=== PATIENT | male | born 1945 | race Caucasian/White ===

== ENCOUNTER → 2018-01-27 | Outpatient (CLI) | payer OTHER ==
[~2018-01-27] MED LIST: ASPIR 8181 MG PO; ATORVASTATIN CA40 MG PO; CENTRUM SILVER1 EAC2 PO; DOXYCYCLINE 10100 M2 PO; FISH OIL 1,001000 M2 PO; LEVOTHYROXIN0.088 MG PO; NORVASC2.5 MG PO; PROPRANOLOL 1010 MG PO
[2018-01-27 09:46] LABS: CREATININE 1.1 mg/dL (0.7-1.3)
== END ==
LOC: CAT 06:21
PROVIDERS: Otolaryngology
DX: M47.892 Other spondylosis, cervical region (principal); R22.1 Localized swelling, mass and lump, neck; Z85.21 Personal history of malignant neoplasm of larynx

== ENCOUNTER → 2019-01-17 | Outpatient (CLI) | payer OTHER ==
--- NOTE | 2019-01-18 13:14 | PATH ---
[facility] [address] [place] [address] PATHOLOGY RPT PROCEDURE Name: DANNY EATON Room #: REG [facility] Betty.#: [id number] ������������������ Admission: 01/17/19 ������������������ Date of : 47 Discharge: Report #: [id number] Path Case #: [id number] [facility] Accession Number: [id number] . 01 Material submitted: . RIGHT NECK BX, RECENT SCC REMOVED IN AREA OF BX . 01 Clinical history: . 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 (IUV:tello; 01/18/2019) QMS/01/18/2019 . 02 Comment: Examination shows fragments of atypical squamous epithelium with few hyperchromatic nuclei, giant cells, areas of hypergranulosis in addition to a focal cyst. Additionally, reactive skeletal muscle fragments are present. Overall, the differential diagnosis includes a partially sampled neoplasm (provided history of squamous cell carcinoma noted) along with a verrucoid lesion, as well as cysts in addition to reparative changes. Correlate clinically and follow-up as indicated. An excision is suggested if clinically indicated. . Dr. Becca Jones and Dr. Natividad Musa have seen customer support representative slides of this case and concur with my diagnosis. (IUV:tello; 01/18/2019) . 02 Electronically signed: . Bonny Livingston MD, Pathologist NPI- [id number] . 01 Gross description: . The specimen is received in formalin, labeled "James, Thomas, right neck, BX", is a lopez-white needle core and its fragments measuring 0.7 x 0.3 x 0.1 cm in aggregate. The specimen is entirely submitted in A1-A2. (SWS; 01/17/2019) SHS/SHS . 02 Pathologist provided ICD-10: L98.8 . 02 CPT . [id number] [address] [address] PATHOLOGY RPT PROCEDURE Name: DANNY EATON Room #: REG Deborah Gil#: [id number] ������������������ Admission: 01/17/19 ������������������ Date of : 47 Discharge: Report #: [id number] Path Case #: [id number] Specimen Comment: A courtesy copy of this report has been sent to Specimen Comment: [phone], , . Specimen Comment: Report sent to ,DR BARON / DR ÁLVAREZ Specimen Comment: A duplicate report has been generated due to demographic updates. Performed at: [address], [place] [id number] MD Bryon Wells MD Phone: [phone] Performed at: [address] [id number] MD Bonny Livingston MD Phone: [phone]
== END | disposition home or self-care (01) ==
LOC: ULTRA 09:12
DX: L92.8 Other granulomatous disorders of the skin and subcutaneous tissue (principal); Z79.82 Long term (current) use of aspirin; Z79.899 Other long term (current) drug therapy